=== PATIENT | male | born 1960 | race Asian ===

== ENCOUNTER 2024-01-18 23:06 | Emergency (ER) | payer BC ==
[~2024-01-18] VITALS: Ht 162.6 cm; Wt 61.2 kg
[2024-01-18 23:09] VITALS: BP_SYST 134; PULSE 88; RESP 18; TEMP 98; O2SAT 98
[2024-01-19] MEDS ORDERED: AUG875 PO (01:00)
[2024-01-19] MEDS: DIPHTH,PERTUSS(ACELL),TET VAC 0.5 ML VIAL (Tdap) I.M. ONE (01:03)
[2024-01-19 01:08] VITALS: BP_SYST 134; PULSE 88; RESP 18; TEMP 98; O2SAT 98
== END 2024-01-19 01:08 | disposition home or self-care (01) ==
LOC: SED 23:06
DX: S61.252A Open bite of right middle finger without damage to nail, initial encounter (principal); W54.0XXA Bitten by dog, initial encounter; Y93.89 Activity, other specified; Y92.89 Other specified places as the place of occurrence of the external cause; Y99.8 Other external cause status
CPT/HCPCS: 90715; 99283